=== PATIENT | female | born 1970 | race Caucasian/White ===

== ENCOUNTER 2024-06-14 19:02 | Emergency (ER) | payer OTHER, SELFPAY ==
[2024-06-14 19:06] VITALS: BP 200/120; PULSE 94; TEMP 36.9; O2SAT 98; BMI 32.5
--- NOTE | 2024-06-14 19:23 | CT_ITS ---
[address] [address] Patient Name: JAZZ BOWIE MRN: [id number] date: 1970 Sex: F Assigned Patient Location: Current Patient Location: Accession/Order Number: [id number] Exam Date: 06/14/2024 19:45 Report Date: 06/14/2024 22:27 At the request of: VALERIO STOUT Procedure: CT lumbar spine wo con EXAMINATION: CT lumbar spine wo con HISTORY: fall, pain pain in the left lower back. Fall downstairs. COMPARISON: None. TECHNIQUE: Axial CT images through the lumbar spine without intravenous contrast. Dose reduction techniques were achieved by using: automated exposure control and/or adjustment of mA and /or kV according to patient size and/or use of iterative reconstruction technique. FINDINGS: Lumbar lordosis maintained. Vertebral bodies are anatomically aligned. Vertebral body heights are preserved. There is no evidence for acute fracture. Degenerative trace anterolisthesis at L4-L5. Benign osseous hemangiomas at the L1 and L3 vertebral bodies. Scattered mild disc space narrowing. Osseous fusion of the left facet joint. L5-S1: Broad-based disc osteophyte complex and moderate facet arthropathy. Mild thecal sac effacement. No foraminal stenosis. L4-L5: Disc bulge and severe bilateral facet arthropathy without spinal canal stenosis. Mild bilateral foraminal stenosis. L3-L4: Minimal disc bulge without stenosis. T12-L1 through L2-L3: No stenosis. CT/CT lumbar spine wo con IMPRESSION: 1. Negative for acute fracture or dislocation in the lumbar spine. 2. There is severe bilateral degenerative facet arthropathy at L4-L5 with degenerative trace anterolisthesis. Electronically authenticated by: SUSANNE HAM Date: 06/14/2024 22:27
--- NOTE | 2024-06-14 19:33 | ED.GENADUL1 ---
HPI HPI - General Adult General Chief complaint: Back Pain/Injury Stated complaint: FALL Time Seen by Provider: 06/14/24 19:05 Source: patient Mode of arrival: Wheelchair Limitations: no limitations History of Present Illness HPI narrative: Patient still 2 hours ago she was going down the basement steps when she missed a step and fell down the last 4 steps landing on concrete. She complains of pain in the left paralumbar soft tissue that moves to the front and into the lower back when she takes a deep breath. She denies injury to the head or neck. She has a history of hypertension, atrial fibrillation and diabetes. Medications include apixaban. Related Data Home Medications ?Medication ?Instructions ?Recorded ?Confirmed albuterol sulfate 90 mcg/actuation inhalation 06/14/24 aerosol inhaler amlodipine 10 mg tablet mg 06/14/24 apixaban 5 mg tablet (Eliquis) mg 06/14/24 atorvastatin 40 mg tablet mg 06/14/24 blood sugar diagnostic ([facility] 06/14/24 06/14/24 Ultra Test strips) blood-glucose meter,continuous 06/14/24 06/14/24 (FreeStyle Beryl 3 Red Jacket) blood-glucose sensor ([employer] 06/14/24 06/14/24 Beryl 3 Sensor device) buprenorphine 8 mg-naloxone 2 mg film 06/14/24 sublingual film dulaglutide 3 mg/0.5 mL mg subcut 06/14/24 subcutaneous pen injector (Trulicity) empagliflozin 25 mg tablet mg 06/14/24 (Jardiance) fluticasone 250 mcg-salmeterol 50 inhalation 06/14/24 mcg/dose blistr powdr for inhalation (Advair Diskus) gabapentin 400 mg capsule mg 06/14/24 insulin glargine 100 unit/mL (3 unit subcut 06/14/24 mL) subcutaneous pen (Lantus Solostar U-100 Insulin) metformin 1,000 mg tablet mg 06/14/24 spironolactone 50 mg tablet mg 06/14/24 sumatriptan succinate 50 mg tablet mg PO 06/14/24 Previous Rx's ?Medication ?Instructions ?Recorded methocarbamol 750 mg tablet 750 mg PO TID #21 tabs 06/14/24 Allergies Allergy/AdvReac Type Severity Reaction Status Date / Time Penicillins Allergy Unknown Verified 06/14/24 19:12 Opioid HPI Opioid Management Most Recent Opioid Data: Last Pain Scale 10 06/14/24 19:44 06/14/24 Review of Systems ROS Status of ROS 10 or more systems reviewed and unremarkable except as noted in history and below [facility] Social History Little interest or pleasure in doing things: not at all Feeling down, depressed, or hopeless: not at all Exam Narrative Exam Narrative: Awake and alert upon arrival. Appears in discomfort due to pain. Initial blood pressure is elevated at 200/120. The rest of her vitals are stable. Head is atraumatic. C-spine is nontender. Pupils are equal and EOMs are full. There is no evidence of facial injury. Lung sounds are clear to auscultation bilaterally and there is no tenderness over the thoracic spine. Heart has regular rate and rhythm. I do not feel the patient is in atrial fib at this time. Abdomen is protuberant, soft nontender. There is no midline lumbar spine tenderness. She localizes tenderness in the left paralumbar soft tissue. Lower extremities are atraumatic. Patient moves all extremities actively. Constitutional Vital Signs, click to edit/add: Last Vital Signs Temp 98.4 F 06/14/24 19:06 Pulse 87 06/14/24 21:14 Resp 16 06/14/24 21:14 BP 154/98 H 06/14/24 21:14 Pulse Ox 96 06/14/24 21:14 O2 Del Method Room Air 06/14/24 21:14 Course Vital Signs Vital signs: Vital Signs Temperature 98.4 F 06/14/24 19:06 Pulse Rate 94 H 06/14/24 19:06 Respiratory Rate 20 06/14/24 19:06 Blood Pressure 200/120 H 06/14/24 19:06 Pulse Oximetry 98 06/14/24 19:06 Oxygen Delivery Method Room Air 06/14/24 19:06 Temperature 98.4 F 06/14/24 19:06 Pulse Rate 87 06/14/24 21:14 Respiratory Rate 16 06/14/24 21:14 Blood Pressure 154/98 H 06/14/24 21:14 Pulse Oximetry 96 06/14/24 21:14 Oxygen Delivery Method Room Air 06/14/24 21:14 Medical Decision Making MDM Narrative Medical decision making narrative: CT scan of the lumbar spine reveals degenerative changes but no fracture. Patient's pain was treated with IV Toradol and Norflex in the ED. Blood work shows an elevated blood glucose and evidence of chronic kidney disease of which she is aware and states that she has been referred to nephrology follow-up. She also takes Suboxone. For this reason I am avoiding narcotic analgesic and am placing her on Robaxin for pain. Early follow-up as advised with her PCP and she may return anytime for worsening symptoms. Lab Data Labs: Lab Results 06/14/24 Range/Units 19:35 WBC 7.7 (4.0-11.0) 10^3/uL RBC 4.53 (4.20-5.40) 10^6/uL Hgb 15.2 (12.0-16.0) g/dL Hct 44.8 (36.0-48.0) % MCV 98.9 (81.0-99.0) fL MCH 33.6 (26.7-34.0) pg MCHC 33.9 (29.9-35.2) g/dL RDW 12.0 (11.0-15.0) % Plt Count 241 (150-450) 10^3/uL MPV 10.7 (9.5-13.5) fL Neut % (Auto) 58.1 (43.0-75.0) % Lymph % (Auto) 31.2 (20.5-60.0) % [place] % (Auto) 6.4 (1.7-12.0) % Eos % (Auto) 3.1 (0.9-7.0) % Baso % (Auto) 0.4 (0.2-2.0) % Neut # (Auto) 4.5 (1.4-6.5) 10^3/uL Lymph # (Auto) 2.4 (1.2-3.8) 10^3/uL [place] # (Auto) 0.5 (0.3-0.8) 10^3/uL Eos # (Auto) 0.2 (0.0-0.7) 10^3/uL Baso # (Auto) 0.0 (0.0-0.1) 10^3/uL Abs Immat Gran (auto) 0.06 H (0.00-0.03) 10^3/uL Imm/Tot Granulo (auto) 0.8 H (0.0-0.5) % Sodium 134 L (136-145) mmol/L Potassium 4.5 (3.5-5.1) mmol/L Chloride 101 (98-107) mmol/L Carbon Dioxide 28.9 (21.0-32.0) mmol/L Anion Gap 8.6 BUN 26.0 H (7.0-18.0) mg/dL Creatinine 1.83 H (0.55-1.02) mg/dL Est GFR ( Amer) 35 L (>=60 mL/min/1.73m^2) Est GFR (Non-Af Amer) 29 L (>=60 mL/min/1.73m^2) BUN/Creatinine Ratio 14.2 Glucose 332 H (74-106) mg/dL Calcium 9.2 (8.5-10.1) mg/dL Total Bilirubin 0.3 (0.2-1.0) mg/dL AST 11 L (15-37) U/L ALT 28 (14-59) U/L Alkaline Phosphatase 130 H (46-116) U/L Total Protein 7.3 (6.4-8.2) g/dL Albumin 3.7 (3.4-5.0) g/dL Globulin 3.6 g/dL Albumin/Globulin Ratio 1.0 Discharge Plan Discharge Chief Complaint: Back Pain/Injury Clinical Impression: Strain of lumbar region Patient Disposition: Home, Self-Care Time of Disposition Decision: 21:08 Condition: Fair Mode of Transportation: Private Vehicle Prescriptions / Home Meds: New methocarbamol 750 mg tablet 750 mg PO TID Qty: 21 0RF No Action atorvastatin 40 mg tablet fluticasone propion-salmeterol [Advair Diskus] 250-50 mcg/dose blister with device INHALATION gabapentin 400 mg capsule sumatriptan succinate 50 mg tablet PO (DME) OneTouch Ultra Test Strip MISCELLANEOUS amlodipine 10 mg tablet metformin 1,000 mg tablet albuterol sulfate 90 mcg/actuation HFA aerosol inhaler INHALATION spironolactone 50 mg tablet insulin glargine [Lantus Solostar U-100 Insulin] 100 unit/mL (3 mL) insulin pen SUBCUT (DME) FreeStyle Beryl 3 Sensor Device MISCELLANEOUS (DME) FreeStyle Beryl 3 Red Jacket Misc MISCELLANEOUS buprenorphine-naloxone 8-2 mg film Eliquis 5 mg tablet Jardiance 25 mg tablet Trulicity 3 mg/0.5 mL pen injector SUBCUT Print Language: Korean Instructions: Low Back Strain (ED), Cold Compress or Soak (ED) Additional Instructions: Follow-up with your primary care physician and cafeteria team leader as soon as possible for better monitoring of your blood glucose and kidney function. Return anytime for worsening symptoms. Referrals: Physician,Non-Staff, [Physician] - 1 week Discharge Date/Time: 06/14/24 21:14
[2024-06-14] MEDS: ORPHENADRINE 60 MG/ 2 ML VIAL IV (19:39)
[2024-06-14] MEDS: KETOROLAC TROMETHAMINE 30 MG/ML VIAL 15 MG IVP (19:39)
[2024-06-14 19:54] LABS: Basophils Percent Auto 0.4 % (0.2-2.0); Eosinophils Absolute Auto 0.2 10^3/uL (0.0-0.7); Eosinophils Percent Auto 3.1 % (0.9-7.0); Hematocrit 44.8 % (36.0-48.0); Hemoglobin 15.2 g/dL (12.0-16.0); Immature Granulocytes Abs Auto 0.06 10^3/uL (0.00-0.03); Immature Granulocytes Pct Auto 0.8 % (0.0-0.5); Lymphocytes Absolute Auto 2.4 10^3/uL (1.2-3.8); Lymphocytes Percent Auto 31.2 % (20.5-60.0); Mean Corpuscular HGB Conc 33.9 g/dL (29.9-35.2); Mean Corpuscular Hemoglobin 33.6 pg (26.7-34.0); Mean Corpuscular Volume 98.9 fL (81.0-99.0); Mean Platelet Volume 10.7 fL (9.5-13.5); Monocytes Absolute Auto 0.5 10^3/uL (0.3-0.8); Monocytes Percent Auto 6.4 % (1.7-12.0); Neutrophils Absolute Auto 4.5 10^3/uL (1.4-6.5); Neutrophils Percent Auto 58.1 % (43.0-75.0); Platelet Count 241 10^3/uL (150-450); Red Blood Count 4.53 10^6/uL (4.20-5.40); White Blood Count 7.7 10^3/uL (4.0-11.0)
[2024-06-14 20:10] LABS: Alanine Aminotransferase 28 U/L (14-59); Albumin Level 3.7 g/dL (3.4-5.0); Alkaline Phosphatase 130 U/L (46-116); Anion Gap 8.6; Aspartate Amino Transferase 11 U/L (15-37); BUN Creatinine Ratio 14.2; Bilirubin Total 0.3 mg/dL (0.2-1.0); Calcium 9.2 mg/dL (8.5-10.1); Carbon Dioxide 28.9 mmol/L (21.0-32.0); Chloride 101 mmol/L (98-107); Estimated GFR (African America 35 (>=60 mL/min/1.73m^2); Estimated GFR (Non-African Ame 29 (>=60 mL/min/1.73m^2); Globulin 3.6 g/dL; Glucose 332 mg/dL (74-106); Potassium 4.5 mmol/L (3.5-5.1); Sodium 134 mmol/L (136-145); Total Protein 7.3 g/dL (6.4-8.2)
[2024-06-14 20:27] VITALS: BP 152/100
[2024-06-14 21:14] VITALS: BP 154/98; PULSE 87; O2SAT 96
== END 2024-06-14 21:14 | disposition home or self-care (01) ==
PROVIDERS: Emergency Provider Emergency Medicine; PCP Family Medicine
DX: S39.012A Strain of muscle, fascia and tendon of lower back, initial encounter (principal); I48.91 Unspecified atrial fibrillation; Z79.01 Long term (current) use of anticoagulants; Z79.85 Long-term (current) use of injectable non-insulin antidiabetic drugs; Z79.84 Long term (current) use of oral hypoglycemic drugs; Z79.4 Long term (current) use of insulin; E11.22 Type 2 diabetes mellitus with diabetic chronic kidney disease; I12.9 Hypertensive chronic kidney disease with stage 1 through stage 4 chronic kidney disease, or unspecified chronic kidney disease; N18.9 Chronic kidney disease, unspecified; W10.8XXA Fall (on) (from) other stairs and steps, initial encounter
CPT/HCPCS: 36415; 72131; 80053; 85025; 96374; 96375; 99285; J1885; J2360